=== PATIENT | male | born 1990 | race Two or more races ===

== ENCOUNTER 2020-04-14 15:18 | Emergency (ER) | payer BC ==
[~2020-04-14] VITALS: Ht 172.7 cm; Wt 80.7 kg
[~2020-04-14 15:18] MED LIST: IBUPROFEN600 MG ORAL; NKM
[2020-04-14 16:00] VITALS: BP 110/79
--- NOTE | 2020-04-14 16:00 | NUR ---
ED Nurse Note: Pt walked in to ed c/o left hand injury after accidentally hitting his hand with the hammer. pt reports UTD tdap. AAOx4, verbally responsive. ERPA at bedside.
--- NOTE | 2020-04-14 16:10 | NUR ---
ED Nurse Note: XR AT BEDSIDE
[2020-04-14] MEDS ORDERED: Lidocaine 1%/ 10mg/ml/EPI 0.01mg/ml 20ml INJ ONE ×2 (16:35→16:45)
--- NOTE | 2020-04-14 16:46 | Emergency Room Report ---
History of Present Illness General Chief Complaint: Upper Extremity Injury Source: Patient Present Illness HPI 30-year-old male with no significant past medical history here due to a laceration right thumb that occurred earlier today after he accidentally cut himself with a hammer. Has full range of motion of the affected side, is neurovascularly intact and has full strength of the upper extremities. Up-to- date with tetanus shot. Denies all other injuries. Denies any blood thinners. Sitting comfortably with stable vital signs. Denies fever and chills. Allergies: Coded Allergies: No Known Allergies (Unverified , 02/13/19) COVID-19 Screening Contact w/high risk pt: No Experienced COVID-19 symptoms?: No COVID-19 Testing performed CLAIMS ANALYST: No Patient History Past Medical History: see triage record Past Surgical History: none Pertinent Family History: none Immunizations: UTD Reviewed Nursing Documentation: PMH: Agreed; PSxH: Agreed Nursing Documentation-PMH Past Medical History: No Stated History Review of Systems All Other Systems: negative except mentioned in HPI Physical Exam Vital Signs Date Time Temp Pulse Resp B/P (MAP) Pulse Ox O2 Delivery O2 Flow Rate FiO2 04/14/20 15:30 99.0 80 18 110/79 (89) 99 Room Air Sp02 EP Interpretation: reviewed, normal General Appearance: no apparent distress, alert, GCS 15, non-toxic Head: normocephalic, atraumatic Eyes: bilateral eye normal inspection, bilateral eye PERRL ENT: hearing grossly normal, normal pharynx, no angioedema, normal voice Neck: full range of motion, supple/symm/no masses Respiratory: chest non-tender, lungs clear, normal breath sounds, speaking full sentences Cardiovascular #1: regular rate, rhythm, no edema Cardiovascular #2: 2+ radial (R), 2+ radial (L) Musculoskeletal: back normal, non-tender, other - Patient is neurovascularly intact Neurologic: alert, motor strength/tone normal, oriented x3, sensory intact, responsive, speech normal Psychiatric: judgement/insight normal, memory normal, mood/affect normal, no suicidal/homicidal ideation Skin: laceration - 1 cm laceration into the dermis dorsum side of right thumb without tendon involvement Lymphatic: no adenopathy Procedures Laceration/Wound Repair Laceration/Wound Repair : Consent: Verbal Wound Location: upper extremity - Right thumb Wound's Depth, Shape: into muscle Wound Length (cm): 1 Wound Explored: contaminated Betadine Prep?: Yes Anesthesia: Lidocaine w/ Epi Volume Anesthetic (ccs): 5 Wound Repaired With: sutures Suture Size/Type: 4:0, proline Number of Sutures: 7 Layer Closure?: Yes Sterile Dressing Applied?: Yes Splint Applied?: Yes Type of Splint Applied: velcro Thumb spica Sling Applied?: No Patient Tolerated: Well Complications: None Medical Decision Making PA Attestation All my diagnosis and treatment plans were reviewed ad discussed with my supervising physician Dr. Junior Diagnostic Impression: Primary Impression: Laceration of hand ER Course 30-year-old male with no significant past medical history here due to a laceration right thumb that occurred earlier today after he accidentally cut himself with a hammer. Has full range of motion of the affected side, is neurovascularly intact and has full strength of the upper extremities. Up-to-date with tetanus shot. Denies all other injuries. Denies any blood thinners. Sitting comfortably with stable vital signs. Denies fever and chills. Ddx considered but are not limited to : Superficial laceration, deep laceration, tendon involvement with laceration, laceration with foreign body Vital signs: are WNL, pt. is afebrile H&PE are most consistent with: deep laceration right thumb ORDERS: Right hand x-ray, Augmentin, mupirocin ointment, Motrin ED INTERVENTIONS: Wound clean, closure DISCHARGE: At this time pt. is stable for d/c to home. Will provide printed patient care instructions, and any necessary prescriptions. Care plan and follow up instructions have been discussed with the patient prior to discharge. Patient take medication as directed, follow primary care provider, sutures to be removed in 5 to 7 days, keep the splint on, if worsening symptoms return to the emergency room Other X-Ray Diagnostic Results Other X-Ray Diagnostic Results : X-Ray ordered: Right hand # of Views/Limited Vs Complete: 3 View Indication: Pain EP Interpretation: Yes CHONG Xray: Interpretation reviewed, by supervising MD, and agrees with findings. Interpretation: no dislocation, no soft tissue swelling, no fractures, other - No foreign body Impression: No acute disease Electronically Signed by: Bautista Russell PA-C Last Vital Signs Date Time Temp Pulse Resp B/P (MAP) Pulse Ox O2 Delivery O2 Flow Rate FiO2 04/14/20 16:00 99.0 80 18 110/79 99 Room Air Disposition: HOME, SELF-CARE Condition: Stable Scripts Mupirocin* (MUPIROCIN*) 22 Gm Oint...g. 1 APPLIC TOPIC THREE TIMES A DAY, #22 GM Prov: Bautista Gil 04/14/20 Ibuprofen* (MOTRIN*) 600 Mg Tablet 600 MG ORAL Q8H PRN for FOR PAIN, #30 TAB 0 Refills Prov: Bautista Gil 04/14/20 Amoxicillin/Potassium Clav 875-125* (AUGMENTIN 875-125 TABLET*) 1 Each Tablet 1 TAB ORAL TWICE A DAY for 7 Days, #14 TAB Prov: Bautista Gil 04/14/20 Referrals: NOT CHOSEN IPA/,REFERRING (PCP) Patient Instructions: Laceration Care, Adult, [id number] Additional Instructions: Take medication as directed, sutures to be removed in 5 to 7 days, if worsening symptoms return to the emergency room Bautista Gil Apr 14, 2020 16:46
[2020-04-14] MEDS ORDERED: IBUPROFEN600 M1 ORAL (16:47)
[2020-04-14] MEDS ORDERED: MUPIROCIN22 GM TOPIC (16:47)
[2020-04-14] MEDS ORDERED: AUGMENTIN 875-1 EAC1 ORAL (16:47)
[2020-04-14] MEDS ORDERED: Bacitracin Oint UD TOPIC ONE ×2 (17:00→17:02)
[2020-04-14 17:13] VITALS: BP 110/79
--- NOTE | 2020-04-14 17:13 | NUR ---
ED Nurse Note: Pt cleared by ERPA for discharge. DC instructions/prescription was given and explained to pt and verbalized understanding of teachings. All medical deviecs such as ID band removed. Pt is AAO x4, ambulatory and left with all personal belongings.
--- NOTE | 2020-04-14 17:39 | Diagnostic Imaging Report ---
Indication: Trauma and hand pain Technique: 3 views right hand Comparison: 02/13/2019 Findings: The bones are osteoporotic. There is a lucency at the base of the fifth metacarpal. Uncertain as to whether this represents residua of the previously demonstrated fracture or represents a new injury. Previously demonstrated fourth metacarpal fracture appears to have healed. No other acute fractures. No dislocations. Impression: Possible acuity indeterminate fracture the base of the fifth metacarpal. Correlate with clinical findings
== END 2020-04-14 17:13 | disposition home or self-care (01) ==
LOC: EMR 15:45
DX: S61.011A Laceration without foreign body of right thumb without damage to nail, initial encounter (principal); W27.8XXA Contact with other nonpowered hand tool, initial encounter; Y93.89 Activity, other specified; Y92.9 Unspecified place or not applicable
CPT/HCPCS: 99283

== ENCOUNTER 2020-04-22 12:15 | Emergency (ER) | payer BC ==
[~2020-04-22] VITALS: Ht 172.7 cm; Wt 72.6 kg
[~2020-04-22 12:15] MED LIST changes: +AUGMENTIN 875-1 EAC1 ORAL; +IBUPROFEN600 M1 ORAL; +MUPIROCIN22 GM TOPIC
--- NOTE | 2020-04-22 12:20 | NUR ---
ED Nurse Note: Patient not found in the waiting room.
[2020-04-22 12:27] VITALS: BP 131/81
[2020-04-22 12:39] VITALS: BP 131/81
--- NOTE | 2020-04-22 12:42 | NUR ---
ED Nurse Note: PT. AAOX4, AMBULATORY COMING FROM HOME. PER PT. IS HERE DUE FOR SUTURE REMOVAL ON HER R HAND. PT. RATED 3/10 PAIN. NO ACUTE DISTRESS NOTED AT THIS TIME
--- NOTE | 2020-04-22 13:10 | Emergency Room Report ---
History of Present Illness General Chief Complaint: Wound Recheck/Suture Removal Source: Patient Present Illness HPI 30-year-old male presents to the emergency department complaining of recently sutured right hand laceration 7 days ago which required suture removal. Patient reports he has some crusting at the site of the laceration and states that he is concerned that some of the stitches may have fallen out. Patient denies bleeding. He denies erythema. Patient reports he did not take prescribed oral antibiotic. Patient states he has been applying ointment and taking Motrin as instructed. Patient reports that he does have some pain when he is at work as he works for [employer] and has to lift heavy boxes. Patient reports being right-hand dominant. He denies fevers or chills. Patient reports he is up-to-date with his tetanus vaccine. He denies paresthesias. Allergies: Coded Allergies: No Known Allergies (Unverified , 02/13/19) COVID-19 Screening Contact w/high risk pt: No Experienced COVID-19 symptoms?: No COVID-19 Testing performed TALENT CONSULTANT: No Patient History Past Medical History: see triage record Past Surgical History: none Pertinent Family History: none Immunizations: UTD Reviewed Nursing Documentation: PMH: Agreed; PSxH: Agreed Nursing Documentation-PMH Past Medical History: No Stated History Review of Systems All Other Systems: negative except mentioned in HPI Physical Exam Vital Signs Date Time Temp Pulse Resp B/P (MAP) Pulse Ox O2 Delivery O2 Flow Rate FiO2 04/22/20 12:27 98.6 64 20 131/81 96 Room Air Sp02 EP Interpretation: reviewed, normal General Appearance: no apparent distress, alert, GCS 15, non-toxic Head: normocephalic, atraumatic Eyes: bilateral eye normal inspection, bilateral eye PERRL ENT: hearing grossly normal, normal voice Neck: full range of motion Respiratory: lungs clear, normal breath sounds, speaking full sentences Cardiovascular #1: regular rate, rhythm, normal capillary refill Musculoskeletal: normal range of motion, gait/station normal, non-tender Neurologic: alert, motor strength/tone normal, oriented x3, sensory intact, responsive, speech normal Psychiatric: judgement/insight normal Skin: other - healing laceration of the right hand. there is some wound dehiscence. and several sutures appear embedded Medical Decision Making PA Attestation Dr. Day is my supervising Physician whom patient management has been discussed with. Diagnostic Impression: Primary Impression: Encounter for removal of sutures ER Course 30-year-old male presents to the emergency department complaining of recently sutured right hand laceration 7 days ago which required suture removal. Patient reports he has some crusting at the site of the laceration and states that he is concerned that some of the stitches may have fallen out. Patient denies bleeding. He denies erythema. Patient reports he did not take prescribed oral antibiotic. Patient states he has been applying ointment and taking Motrin as instructed. Patient reports that he does have some pain when he is at work as he works for [employer] and has to lift heavy boxes. Patient reports being right-hand dominant. He denies fevers or chills. Patient reports he is up-to-date with his tetanus vaccine. He denies paresthesias. Ddx considered but are not limited to laceration, tendon injury, cellulitis,dehiscence. Vital signs: are WNL, pt. is afebrile H&PE are most consistent with: healing laceration of the right hand. there is some wound dehiscence. and several sutures appear embedded ORDERS: none required at this time, the diagnosis is clinical ED INTERVENTIONS: - 7 Sutures removed. DISCHARGE: At this time pt. is stable for d/c to home. Will provide printed patient care instructions, and any necessary prescriptions. Care plan and follow up instructions have been discussed with the patient prior to discharge. Last Vital Signs Date Time Temp Pulse Resp B/P (MAP) Pulse Ox O2 Delivery O2 Flow Rate FiO2 04/22/20 12:27 98.6 64 20 131/81 (98) 96 Room Air Disposition: HOME, SELF-CARE Condition: Stable Scripts Cephalexin* (KEFLEX*) 500 Mg Capsule 500 MG ORAL EVERY 12 HOURS for 7 Days, #14 CAP 0 Refills Prov: Fior Healy 04/22/20 Departure Forms: Return to Work Return to Work Date: Apr 28, 2020 Other Restrictions: May return Sooner if Symptoms have resolved. Return to Full Activity: Apr 28, 2020 Patient Instructions: Suture Removal, Care After Additional Instructions: Reduce amount of times per day you apply the antibiotic ointment that was previously prescribed to you. Take oral antibiotics as prescribed. Follow up with a Primary Care Provider in 3-5 days, even if your symptoms have resolved. Return sooner to ED if new symptoms occur, or current symptoms become worse. - Please note that this Emergency Department Report was dictated using [employer] technology software, occasionally this can lead to erroneous entry secondary to interpretation by the dictation equipment. Fior Healy Apr 22, 2020 13:10
[2020-04-22] MEDS ORDERED: CEPHALEXIN500 MG ORAL (13:11)
--- NOTE | 2020-04-22 13:30 | NUR ---
ER DISCHARGE NOTE: Patient is cleared to be discharged per ERMD. D/C instruction and prescriptions given to patient. All questions were answered. Patient verbalized understanding of it. ID band removed. Patient agreed to f/u with PCP. Patient ambulated out with steady gait with all his belongings.
== END 2020-04-22 13:30 | disposition home or self-care (01) ==
LOC: EMR 13:10
DX: Z48.02 Encounter for removal of sutures (principal); S61.411D Laceration without foreign body of right hand, subsequent encounter; X58.XXXD Exposure to other specified factors, subsequent encounter
CPT/HCPCS: 99282